=== PATIENT | female | born 1995 | race Caucasian/White ===

== ENCOUNTER 2016-04-05 20:57 | Emergency (ER) | payer BC, OTHER ==
[2016-04-05 21:31] LABS: URINE APPEARANCE SL CLOUDY; URINE BILIRUBIN NEGATIVE (NEGATIVE); URINE BLOOD NEGATIVE (NEGATIVE); URINE COLOR ORANGE; URINE KETONE TRACE (NEGATIVE); URINE LEUKOCYTE ESTERASE TRACE (NEGATIVE); URINE NITRITE POSITIVE (NEGATIVE)
[2016-04-05 21:33] LABS: HCG,QUALITATIVE URINE NEGATIVE (NEGATIVE)
--- NOTE | 2016-04-05 21:34 | Emergency Department Record ---
History of Present Illness - General Chief complaint: Female Urogenital Problem Stated complaint: PELVIC PAIN Time Seen by Provider: 04/05/16 21:20 Source: Patient Mode of Arrival: Ambulatory Limitations: No limitations - History of Present Illness Initial comments: 20 yo female presents with about one week of pelvic pain. She has had some discomfort with urination as well. The discharge has been brownish in color. Her last normal menstrual cycle was 3 weeks ago. No history of prior [employer] disease. No fevers. No NVD. No back pain. She saw her PCP who placed her on antibiotics for UTI. She has not had any change in her symptoms. MD Complaint: Pelvic pain, Vaginal discharge Onset/Timin -: Days(s) Location: Suprapubic Severity scale (1-10): 8 Quality: Aching, Burning Consistency: Intermittent Worsens with: Urination Associated Symptoms: Vaginal discharge - Related Data Sexually active: Yes Home Medications Medication Instructions Recorded Confirmed Last Taken Alprazolam [Xanax] 0.25 mg PO Q8H 04/05/16 04/05/16 04/05/16 Ethinyl Estradiol/Drospirenone 1 tab PO DAILY 04/05/16 04/05/16 04/05/16 [Drospirenone-Ee 3-0.03 mg Tab] Previous Rx's Medication Instructions Recorded Metronidazole [Flagyl] 500 mg PO BID #14 tablet 04/05/16 Allergies Allergy/AdvReac Type Severity Reaction Status Date / Time No Known Drug Allergies Allergy Verified 04/05/16 21:03 Travel Screening - Travel/Exposure Within Last 30 Days Have you traveled within the last 30 days?: No - Travel Symptoms Symptom Screening: None Review of Systems Constitutional: Denies: Chills, Fever, Malaise, Weakness Eyes: Denies: Eye discharge ENT: Denies: Congestion, Throat pain Respiratory: Denies: Cough, Dyspnea, Hemoptysis, Stridor, Wheezes Cardiovascular: Denies: Chest pain, Palpitations, Syncope Endocrine: Denies: Fatigue Gastrointestinal: Reports: As per HPI, Abdominal pain. Denies: Constipation, Diarrhea, Hematemesis, Hematochezia, Nausea, Vomiting Genitourinary: Reports: As per HPI, Discharge, Dysuria, Frequency, Urgency. Denies: Abnormal menses, Hematuria, Retention Musculoskeletal: Denies: Arthralgia, Back pain, Myalgia, Neck pain Skin: Denies: Bruising, Change in color Neurological: Denies: Confusion, Headache Psychiatric: Denies: Anxiety Hematological/Lymphatic: Denies: Blood Clots, Easy bleeding, Easy bruising, Swollen glands Past Medical History - SOCIAL HISTORY Smoking Status: Never smoker - RESPIRATORY Hx Respiratory Disorders: No - CARDIOVASCULAR Hx Cardio Disorders: No - NEURO Hx Neuro Disorders: No - GI Hx GI Disorders: No - Hx Genitourinary Disorders: No - ENDOCRINE Hx Endocrine Disorders: No - MUSCULOSKELETAL Hx Musculoskeletal Disorders: No - PSYCH Hx Psych Problems: Yes Hx Anxiety: Yes - HEMATOLOGY/ONCOLOGY Hx Hematology/Oncology Disorders: No Family Medical History Any Significant Family History?: Yes Hx Diabetes: Grandparents Hx Heart Disease: Grandparents Physical Exam - General General Appearance: Alert Limitations: No limitations - Head Head exam: Atraumatic - Eye Eye exam: Normal appearance - ENT ENT exam: Normal exam - Neck Neck exam: Normal inspection - GI/Abdominal GI/Abdominal exam: Soft, Tenderness (mild suprapubic tenderness, soft). negative: Distended, Guarding, Rebound, Rigid - Rectal Rectal exam: Deferred - exam: Adnexal tenderness (L), Adnexal tenderness (R), Normal external exam, Normal speculum exam, Vaginal discharge (mild whitish, no blood, no lesions). negative: Abnormal external exam, Adnexal mass (L), Adnexal mass (R), Cervical discharge, cervical motion tenderness, Enlarged uterus, Vaginal bleeding, Vaginal erythema - Extremities Extremities exam: Normal inspection, Full ROM, Normal capillary refill. negative: Tenderness - Back Back exam: Reports: Normal inspection, Full ROM. Denies: CVA tenderness (R), CVA tenderness (L), Muscle spasm, Rash noted, Tenderness - Neurological Neurological exam: Alert, Normal gait, Oriented X3. negative: Altered - Psychiatric Psychiatric exam: Normal affect, Normal mood - Skin Skin exam: Dry, Intact, Normal color, Warm Course Vital Signs 04/05/16 21:05 Temperature 98.3 F Pulse Rate 73 Respiratory 18 Rate Blood Pressure 131/75 Pulse Ox 100 - Reevaluation(s) Reevaluation #1: The Wet prep demonstrated clue cells We discussed bacterial vaginosis She still has a UTI but she is only on day two of Levaquin We discussed the pending pelvic and urine cultures. We discussed setting up an US in the morning Given the UTI and BV she will give the medications a few days to work She will return if the pain is worse and not better 04/05/16 22:16 04/05/16 23:34 Disposition Disposition: Discharge Clinical Impression: Bacterial vaginosis Disposition: Home, Self-Care Condition: (1) Good Instructions: Bacterial Vaginosis (ED) Additional Instructions: Call your doctor for close follow up Follow up with your [employer] as scheduled Return to the ER if worse immediately Prescriptions: Metronidazole [Flagyl] 500 mg PO BID #14 tablet Forms: Patient Portal Access Time of Disposition: 22:19
[2016-04-05 21:38] LABS: URINE BACTERIA 2+; URINE RBC 0 - 2 (NONE SEEN)
[2016-04-05] MEDS ORDERED: METRONIDAZOLE 250 MG TABLET PO ONE (22:16)
== END 2016-04-05 22:42 | disposition home or self-care (01) ==
LOC: ER 20:57
DX: N76.0 Acute vaginitis (principal); R30.0 Dysuria; R10.2 Pelvic and perineal pain
CPT/HCPCS: 99284 ×2; 81001; 81025; Q0111; 87210